=== PATIENT | female | born 1955 | race Caucasian/White ===

== ENCOUNTER → 2016-12-31 | Outpatient (CLI) | payer BC ==
[~2016-12-31] MED LIST: CALTRATE 600+D PO; CERTAGEN PO; DICYCLOMINE HCL20 MG PO; FISH OIL 1,0001 CAP PO; FOSAMAX PO; MIRALAX17 GM DOB; MULTIVITAMIN1 UDCAP PO; NEXIUM PO; NEXIUM20 MG PO; NORVASC10 MG PO; PHENERGAN25 MG PO; PRILOSEC40 MG PO; SYNTHROID PO; SYNTHROID0.1 MG PO; VITAMIN D 4001 UDTAB PO; VITAMIN D2000 UNIT PO; WELLBUTRIN PO; WELLBUTRIN XL PO
[2016-12-31 16:19] LABS: HEMATOCRIT 43.6 % (35.0-45.0); HEMOGLOBIN 14.8 gm/dL (12.0-16.0); MEAN CELL VOLUME 97.9 FL (83-96); MEAN CORPUSCULAR HEMOGLOBIN 33.1 PG (28-34); MEAN CORPUSCULAR HGB CONC 33.8 g/dL (30-36); MEAN PLATELET VOLUME 6.8 FL (6.5-11.5); RED BLOOD COUNT 4.46 X10e (3.90-5.30); WHITE BLOOD COUNT 9.6 X10e3 (4.0-10.5)
[2016-12-31 17:12] LABS: ALBUMIN SERUM 4.5 g/dL (3.5-5.0); BILIRUBIN,TOTAL 0.6 mg/dL (0.2-2.0); CALCIUM SERUM 9.4 mg/dL (8.4-10.2); CREATININE SERUM 0.4 mg/dL (0.6-1.4); POTASSIUM 3.7 mmol/L (3.5-5.1); PROTEIN TOTAL SERUM 7.5 g/dL (6.0-8.3)
== END | disposition home or self-care (01) ==
LOC: CLAB 15:38
PROVIDERS: Nurse Practitioner
DX: R53.83 Other fatigue (principal)
CPT/HCPCS: 36415; 80053; 84443; 85027